=== PATIENT | male | born 1965 | race Caucasian/White ===

== ENCOUNTER 2017-07-20 11:29 | Emergency (ER) | payer BC ==
[~2017-07-20] VITALS: Ht 180.3 cm; Wt 97.5 kg
[~2017-07-20 11:29] MED LIST: ADAL40PE SQ; OXYC-323 PO; PROM25TA10 PO; TAMS0.4C97 PO
[2017-07-20 11:45] VITALS: BP 189/90
--- NOTE | 2017-07-20 12:19 | RAD ---
SHOULDER 2+V LEFT History:[place] a pop in the left shoulder after tightening a bolt, left shoulder pain since this am Comparison: None Findings:3 views left shoulder are submitted. There is degenerative change of the acromioclavicular joint. No acute fracture or dislocation is identified. Impression: 1. No acute osseous abnormality is identified.
--- NOTE | 2017-07-20 12:45 | RAD ---
EXT NON VASC LEFT History:BICEPS TENDON RUPTURE, felt pop in left bicep while tightening bolt today Comparison: None Findings:Sonographic images were acquired of the left arm with attention to the bicep. There is some nonspecific fluid and edema present. There is heterogeneity of the left biceps muscle. Impression: 1.There is nonspecific heterogeneity with fluid and edema of the left biceps muscle.
[2017-07-20] MEDS ORDERED: HYDR-971 PO (13:02)
--- NOTE | 2017-07-20 13:03 | PHYS DOC ---
Past Medical History Past Medical History: Arthritis, Hypertension, Kidney Stone, Other Additional Past Medical Histor: ANKYLOSING SPONDYLITIS Past Surgical History: Other Additional Past Surgical Histo: RIGHT ANKLE Alcohol Use: Heavy Drug Use: None Adult General Chief Complaint Chief Complaint: UPPER EXTREMITY INJURY HPI HPI Patient is a 51 year old male who presents with left upper extremity injury. THe patient states just prior to arrival he was tightening a screw & felt sudden popping & pain in left upper arm. He noticed a bulge over his upper arm. He denies other injury. He is right handed. Recently took an unknown antibiotic for lower extremity wound, received cortisone injection to [facility] last week. Review of Systems Review of Systems Constitutional: Denies fever or chills HENT: Denies nasal congestion or sore throat Respiratory: Denies cough or shortness of breath Cardiovascular: Denies chest pain GI: Denies abdominal pain, nausea, vomiting Musculoskeletal: Reports upper arm pain Integument: Denies rash Neurologic: Denies headache Allergies Allergies Allergies Coded Allergies Type Severity Reaction Last Updated Verified No Known Drug Allergies 09/17/16 No Physical Exam Physical Exam Constitutional: Well developed, well nourished, no acute distress, non-toxic appearance. HENT: Normocephalic, atraumatic, bilateral external ears normal, oropharynx moist, nose normal. Eyes: conjunctiva normal, no discharge. Cardiovascular: no edema. Lungs & Thorax: no respiratory distress. Abdomen: nondistended. Skin: Warm, dry, no erythema, no rash. Extremities: left upper extremity deformity bulging of biceps tendon, no shoulder or elbow tenderness or deformity but there is tenderness over biceps tendon insertion proximally, radial pulse 2+, radial/median/ulnar nerve sensory & motor function intact. Neurologic: Alert and oriented X 3 Current Patient Data Vital Signs Vital Signs Date Time Temp Pulse Resp B/P (MAP) Pulse Ox O2 Delivery O2 Flow Rate FiO2 07/20/17 11:45 98.2 50 18 99 Room Air 98.2 EKG EKG [] Radiology/Procedures Radiology/Procedures PROCEDURE: EXT NON VASC LEFT EXT NON VASC LEFT History:BICEPS TENDON RUPTURE, felt pop in left bicep while tightening bolt today Comparison: None Findings:Sonographic images were acquired of the left arm with attention to the bicep. There is some nonspecific fluid and edema present. There is heterogeneity of the left biceps muscle. Impression: 1.There is nonspecific heterogeneity with fluid and edema of the left biceps muscle. DICTATED and SIGNED BY: KRUNAL NOGUEIRA MD DATE: 07/20/17 1240 PROCEDURE: SHOULDER 2+V LEFT SHOULDER 2+V LEFT History:[place] a pop in the left shoulder after tightening a bolt, left shoulder pain since this am Comparison: None Findings:3 views left shoulder are submitted. There is degenerative change of the acromioclavicular joint. No acute fracture or dislocation is identified. Impression: 1. No acute osseous abnormality is identified. DICTATED and SIGNED BY: KRUNAL NOGUEIRA MD DATE: 07/20/17 1215[] Course & Med Decision Making Course & Med Decision Making Pertinent Labs and Imaging studies reviewed. (See chart for details) The patient presents with biceps tendon injury/rupture. Gave pain medication. Obtained XR & US. Provided sling, recommend ice, ibuprofen, follow up with Dr. Caba in the orthopedic clinic in 1 week. Come back for neurovascular compromise or otherwise worsening condition. Discharged home in stable condition. [] Dragon Disclaimer Dragon Disclaimer This electronic medical record was generated, in whole or in part, using a voice recognition dictation system. Departure Departure Impression: Primary Impression: Biceps tendon rupture Disposition: 01 HOME, SELF-CARE Condition: STABLE Referrals: NO PCP TIFFANI CABA MD Patient Instructions: Biceps Tendon Disruption (Proximal) with [facility] Additional Instructions: You were seen in the emergency department today for biceps tendon rupture. Please rest, apply ice, use sling for comfort, take ibuprofen 600 mg every 8 hours, use norco for severe breakthrough pain. No drinking alcohol or driving while taking norco. Follow up with Dr. Caba in the orthopedic clinic in 1 week. Come back for numbness or weakness in your arm, or otherwise worsening condition. Scripts Hydrocodone/Apap 5-325 (NORCO 5-325 TABLET) 1 Each Tablet 1 TAB PO PRN Q6HRS Y for PAIN, #10 TAB 0 Refills Prov: JESUS MANUEL BOSTON MD 07/20/17 Problem Qualifiers Primary Impression: Biceps tendon rupture Encounter type: initial encounter Laterality: left Qualified Codes: S46.212A - Strain of muscle, fascia and tendon of other parts of biceps, left arm, initial encounter JESUS MANUEL BOSTON MD Jul 20, 2017 13:03
== END 2017-07-20 13:11 | disposition home or self-care (01) ==
LOC: ER 11:29
DX: S46.212A Strain of muscle, fascia and tendon of other parts of biceps, left arm, initial encounter (principal); I10 Essential (primary) hypertension; Z87.442 Personal history of urinary calculi; M19.90 Unspecified osteoarthritis, unspecified site; M45.9 Ankylosing spondylitis of unspecified sites in spine; X50.9XXA Other and unspecified overexertion or strenuous movements or postures, initial encounter; Y93.89 Activity, other specified; Y99.8 Other external cause status; Y92.89 Other specified places as the place of occurrence of the external cause
CPT/HCPCS: 73030; 76881; 99284-25